=== PATIENT | female | born 1940 | race Caucasian/White ===

== ENCOUNTER 2022-09-13 12:27 | Emergency (ER) | payer MEDICARE, SELFPAY ==
[2022-09-13 12:39] VITALS: BP 106/63; PULSE 95; RESP 20; O2SAT 96
--- NOTE | 2022-09-13 12:51 | XR_ITS ---
WS: [id number] EXAMINATION: XR chest 1V portable [id number] REASON FOR EXAM: dyspnea/cough COMPARISON: None available. ORDER DATE: 09/13/2022 12:53 PM TECHNIQUE: A single, portable frontal chest x-ray was obtained. X-RAY FINDINGS: There is a completely opacified right hemithorax with a lucent ovoid component superimposing the medi al right upper lung which could either be outside of the chest cavity or outside the patient as an ar tifact since it does cross the midline. There seems to be some midline shift towards the left based o n the relative size of each hemithorax and the tracheal shift to the left. There is no infiltrates in the left lung. There is atherosclerotic aortic change with a left ventricular outline and appears to suggest normal cardiac size. No left pleural effusion. XR/XR chest 1V portable [id number] IMPRESSION: Enlarged of complete hemithorax opacity on the right is suggested represent mo st likely a large effusion which is shifting the mediastinum toward the left. A n unusual ovoid lucency superimposes the medial right upper lung but crosses th e midline as noted..
--- NOTE | 2022-09-13 13:57 | W.ED.SOB ---
HPI - SOB/Dyspnea General: Chief Complaint: Shortness of Breath/Dyspnea Stated Complaint: fluid overload Time Seen by Provider: 09/13/22 12:51 Source: patient Mode of arrival: EMS History of Present Illness: HPI Narrative: 81-year-old female with history of liver cirrhosis presents to the emergency room. She denies chest pain or shortness of breath she felt like her abdomen is distended and she needed a paracentesis that she had had one done here previously. She is not a candidate distress she denies shortness of breath chest pain or abdominal pain. She lives at a senior care in [place]. Exacerbating factors: nothing Relieving factors: nothing Associated symptoms: Deny abdominal pain, chest congestion, chest pain, cough, diaphoresis, dizziness, extremity pain, fever(s), hemoptysis, lightheadedness, myalgias, nausea, orthopnea, palpitations, paresthesias, polydipsia, polyuria, rash, sense of impending doom, syncope or vomiting Treatment prior to arrival: none Review of Systems Const: Denies: fever(s), chills or diaphoresis ENMT: Denies: throat pain, ear or mastoid pain, nasal discharge or nasal congestion Card: Denies: chest pain, palpitations, lightheadedness, syncope or orthopnea Resp: Denies: dyspnea, productive cough, non-productive cough, hemoptysis or chest congestion GI: Denies: abdominal pain, nausea or vomiting : Denies: flank pain, difficulty voiding, dysuria, urinary frequency or urinary urgency Musc: Denies: neck pain, back pain or extremity pain Skin/Breast: Denies: rash or pruritus Neuro: Denies: dizziness Endo: Denies: polyuria or polydipsia PFS ED PFSH: Medical History (Updated 09/13/22 @ 17:29 by Дмитрий Valentine DO) Cirrhosis Physical Exam Const: GENERAL APPEARANCE: cooperative and comfortable ORIENTATION/CONSCIOUSNESS: Yes awake, Yes oriented to person, Yes oriented to place and Yes oriented to time HENMT: COMMON NORMALS: normocephalic, atraumatic and hearing grossly normal bilaterally HEAD & SCALP: normocephalic and atraumatic Resp: COMMON NORMALS: normal respiratory effort, No retractions, No use of accessory muscles and clear to auscultation bilaterally AUSCULTATION: clear to auscultation bilaterally Cardio: COMMON NORMALS: regular rate, regular rhythm and No murmurs present (Cardio) RATE: regular rate RHYTHM: regular rhythm GI: COMMON NORMALS: Soft to palpation and No hepatosplenomegaly present AUSCULTATION: Yes normoactive bowel sounds PALPATION: Yes Soft to palpation, No Tenderness to palpation present (GI), No Guarding due to palpation present (GI) and Yes No hepatosplenomegaly present Extremity: COMMON NORMALS: normal to inspection, capillary refill normal, no clubbing, cyanosis or edema, no calf tenderness and no pedal edema Neuro: SENSORIUM/ORIENTATION: Yes oriented to person, Yes oriented to place and Yes oriented to time Skin: COMMON NORMALS: no rashes or lesions noted GENERAL SKIN EXAM: no rashes or lesions noted Course Vital Signs: Vital signs: Vital Signs Pulse Rate 84 09/13/22 18:09 Respiratory Rate 18 09/13/22 18:09 Blood Pressure 99/63 09/13/22 18:09 Pulse Oximetry 93 09/13/22 15:10 Oxygen Delivery Me thod Room Air 09/13/22 12:39 MDM - SOB/Dyspnea Medical Decision Making Discussed with Dr. Yoo thoracentesis done ultrasound-guided approximately 1400 mL patient demonstrates improvement however she did have a transient hypotension that also improved spontaneously. Discussed with the patient and the family this is likely to persist and recur. Concerned about possible recurrence of her breast cancer causing the cytology from the original thoracentesis is still pending this was done at [facility] in [place]. We did call and get her old labs her BUN is slightly elevated from before creatinine is about at her baseline. 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 Peers large numbers of this is chronic occluding her thrombocytopenia. Her INR is elevated as well for patient is not on any anticoagulants. We will discharge back to the senior care patient is in no COVID at this time. Discussed with the family different treatment options going forward. Also discussed possibility of talking to their primary care doctor about having a pleural drain placed. Discharged in stable condition. Medical Records I reviewed the patient's medical records. Lab Data I reviewed the patient's lab results. 09/13/22 13:53 09/13/22 13:53 Labs/Radiology: Radiology Impressions Thoracentesis Ultrasound 09/13/22 14:20 IMPRESSION: 1. RIGHT thoracentesis yielding 1400 cc of fluid. 2. Chest radiograph to follow to evaluate for pneumothorax. Chest X-Ray 09/13/22 15:25 IMPRESSION: 1. No pneumothorax status post RIGHT thoracentesis. 2. There is persistent large RIGHT pleural effusion. Laboratory Results WBC 16.6 10^3/uL (4.0-10.0) H 09/13/22 13:53 RBC 5.70 10^6/uL (4.1-5.3) H 09/13/22 13:53 Hgb 15.6 g/dL (11.5-15.3) H 09/13/22 13:53 Hct 46.8 % (37.0-47.0) 09/13/22 13:53 MCV 82.1 fl (81-99) 09/13/22 13:53 MCH 27.4 pg (28.0-34.0) L 09/13/22 13:53 MCHC 33.3 g/dL (30.0-36.0) 09/13/22 13:53 RDW 15.4 % (12.1-15.1) H 09/13/22 13:53 Plt Count 68 10^3/cmm (130-400) L 09/13/22 13:53 MPV 11.9 fL (7.4-10.4) H 09/13/22 13:53 Neut % (Auto) 87.7 % 09/13/22 13:53 Lymph % (Auto) 3.9 % 09/13/22 13:53 Ramsey % (Auto) 7.7 % 09/13/22 13:53 Eos % (Auto) 0.1 % 09/13/22 13:53 Baso % (Auto) 0.1 % 09/13/22 13:53 Neut # (Auto) 14.53 10^3/uL (1.8-7.7) H 09/13/22 13:53 Lymph # (Auto) 0.7 10^3/uL (0.8-4.8) L 09/13/22 13:53 Ramsey # (Auto) 1.3 10^3/uL (0.2-0.9) H 09/13/22 13:53 Eos # (Auto) 0.0 10^3/uL (0.0-0.8) 09/13/22 13:53 Baso # (Auto) 0.0 10^3/uL (0.0-0.1) 09/13/22 13:53 Nucleated RBC % (auto) 0 % 09/13/22 13:53 Nucleated RBCs # 0.0 /100WBC 09/13/22 13:53 PT 20.80 SECONDS (12.1-14.9) H 09/13/22 13:53 INR 1.73 (0.8-1.2) H 09/13/22 13:53 APTT 30.6 SECONDS (23.9-36.7) 09/13/22 13:53 Sodium 124 mmol/L (136-145) L 09/13/22 13:53 Potassium 4.2 mmol/L (3.5-5.1) 09/13/22 13:53 Chloride 88 mmol/L (98-107) L 09/13/22 13:53 Carbon Dioxide 21 mmol/L (22-29) L 09/13/22 13:53 Anion Gap 19.2 (5-19) H 09/13/22 13:53 BUN 120 mg/dL (8-23) H* 09/13/22 13:53 Creatinine 2.3 mg/dL (0.5-0.9) H 09/13/22 13:53 GFR Calculation Not Reportable 09/13/22 13:53 Glucose 372 mg/dL (65-115) H 09/13/22 13:53 Calculated Osmolality 312 mOsm/kg (285-295) H 09/13/22 13:53 Calcium 6.9 mg/dL (8.5-10.5) L 09/13/22 13:53 Total Bilirubin 3.8 mg/dL (0.15-1.2) H 09/13/22 13:53 AST 118 U/L (0-32) H 09/13/22 13:53 ALT 191 U/L (0-33) H 09/13/22 13:53 Alkaline Phosphatase 482 U/L (35-105) H 09/13/22 13:53 Total Protein 4.6 g/dL (6.6-8.7) L 09/13/22 13:53 Albumin 2.6 g/dL (3.5-5.2) L 09/13/22 13:53 Globulin 2.0 g/dL (1.3-4.6) 09/13/22 13:53 Discharge Plan Discharge Patient Disposition: Home Clinical Impression: Cirrhosis, Pleural effusion on right Condition: Stable Prescriptions: No Action furosemide 40 mg tablet 40 mg PO DAILY anastrozole 1 mg tablet 1 mg PO DAILY nystatin 100,000 unit/mL Suspension 5 ml PO Q6H Rx Instructions: swish and swallow lidocaine 4 % Adhesive Patch,Medicated 1 patch TOPICAL BID cyanocobalamin (vitamin B-12) 1,000 mcg Tablet 1,000 mcg PO DAILY guaifenesin 100 mg/5 mL Liquid 200 mg PO Q4H PRN (Reason: Cough) [place] 7.5-325 mg Tablet 1 tab PO Q6H PRN (Reason: Pain) montelukast 10 mg Tablet 10 mg PO QPM metoprolol succinate 25 mg Tablet Extended Release 24 Hr 25 mg PO BID nystatin 100,000 unit/gram Powder 1 applic TOPICAL BID lovastatin 20 mg tablet 20 mg PO DAILY cholecalciferol (vitamin D3) 25 mcg (1,000 unit) Capsule 25 mcg PO DAILY Spiriva with HandiHaler 18 mcg capsule, w/inhalation device 1 cap INHALATION DAILY Women's 50 Plus Multivitamin 400 mcg-500 mg calcium-20 mcg Tablet 1 tab PO DAILY Breo Ellipta 100-25 mcg/dose blister with device 1 inh INHALATION DAILY Discharge Orders: Discharge ED (Routine); Ordered 09/13/22 Ordered By: Дмитрий Valentine Referrals: Adrienne Joseph MD [Primary Care Provider] - Discharge Diet: Usual diet Discharge Activity: Increase activity as tolerated Patient Instructions: Opioid Safety, Pain Management Activity Restrictions/Additional Instructions: You were seen today for right pleural effusion which was partially drained. Follow-up with your primary care doctor pursue consideration of permanent pleural drain. We pulled off as much fluid as your blood pressure would allow. Your laboratory tests are abnormal due to your chronic medical problems. Follow-up with your primary care physician. Coding Level of Care Code ED Wheel Inspector for Annabelle Tee
[2022-09-13 14:00] LABS: Basophils % 0.1 %; Eosinophils % 0.1 %; Hematocrit 46.8 % (37.0-47.0); Hemoglobin 15.6 g/dL (11.5-15.3); Lymphocytes # 0.7 10^3/uL (0.8-4.8); Lymphocytes % 3.9 %; Mean Corpuscular HGB Conc 33.3 g/dL (30.0-36.0); Mean Corpuscular Hemoglobin 27.4 pg (28.0-34.0); Mean Corpuscular Volume 82.1 fl (81-99); Mean Platelet Volume 11.9 fL (7.4-10.4); Monocytes # 1.3 10^3/uL (0.2-0.9); Monocytes % 7.7 %; Neutrophils # 14.53 10^3/uL (1.8-7.7); Neutrophils % 87.7 %; Nucleated Red Blood Cells % 0 %; Platelet Count 68 10^3/cmm (130-400); Red Cell Distribution Width 15.4 % (12.1-15.1); White Blood Count 16.6 10^3/uL (4.0-10.0)
[2022-09-13 14:17] LABS: Alanine Aminotransferase 191 U/L (0-33); Albumin Level 2.6 g/dL (3.5-5.2); Alkaline Phosphatase 482 U/L (35-105); Anion Gap 19.2 (5-19); Aspartate Amino Transferase 118 U/L (0-32); Calcium 6.9 mg/dL (8.5-10.5); Carbon Dioxide 21 mmol/L (22-29); Chloride 88 mmol/L (98-107); Glucose 372 mg/dL (65-115); Potassium 4.2 mmol/L (3.5-5.1); Sodium 124 mmol/L (136-145); Total Bilirubin 3.8 mg/dL (0.15-1.2); Total Protein 4.6 g/dL (6.6-8.7)
--- NOTE | 2022-09-13 14:20 | US_ITS ---
WS: [id number] ULTRASOUND-GUIDED THORACENTESIS, RIGHT HISTORY: R pleural effusion, large Procedure, risks, and complications were explained to the patient. With the patient in an upright pos ition, the skin over the RIGHT posterior thorax was cleansed with ChloraPrep and anesthetized with 1% buffered lidocaine. A 5 [place] Yueh needle is inserted into the pleural fluid without complication. Approximately 1400 cc of clear pleural fluid is removed without difficulty. / thoracentesis [id number] IMPRESSION: 1. RIGHT thoracentesis yielding 1400 cc of fluid. 2. Chest radiograph to follow to evaluate for pneumothorax.
[2022-09-13 14:25] LABS: Blood Urea Nitrogen 120 mg/dL (8-23); Osmolality Calculated 312 mOsm/kg (285-295)
[2022-09-13 14:32] LABS: INR 1.73 (0.8-1.2)
[2022-09-13 14:33] LABS: Partial Thromboplastin Time 30.6 SECONDS (23.9-36.7)
[2022-09-13 15:10] VITALS: BP 89/46; O2SAT 93
--- NOTE | 2022-09-13 15:25 | XR_ITS ---
WS: [id number] PORTABLE CHEST HISTORY: POST THORA, RIGHT. COMPARISON: Chest earlier the same day. Slight improvement in aeration of the RIGHT lung. No pneumothorax. There is still a large RIGHT pleur al effusion. No significant LEFT pleural effusion. Cardiac size: Partially obscured by the pleural fluid. Mediastinum/Aorta: Normal mediastinum. Osteopenia. XR/XR chest 1V portable [id number] IMPRESSION: 1. No pneumothorax status post RIGHT thoracentesis. 2. There is persistent large RIGHT pleural effusion.
[2022-09-13 18:09] VITALS: BP 99/63; PULSE 84; RESP 18
== END 2022-09-13 18:10 | disposition home or self-care (01) ==
PROVIDERS: Emergency Provider Family Medicine; PCP Internal Medicine
DX: K74.60 Unspecified cirrhosis of liver (principal); J90 Pleural effusion, not elsewhere classified
CPT/HCPCS: 32555; 71045; 80053; 85025; 85610; 85730; 99285